=== PATIENT | male | born 1985 ===

== ENCOUNTER → 2020-03-24 | Outpatient (CLI) | payer OTHER ==
--- NOTE | 2020-03-24 11:30 | RAD ---
EXAMINATION: MRI RIGHT KNEE WITHOUT CONTRAST CLINICAL HISTORY: MEDIAL KNEE PAIN AFTER TWISTING 5 MONTHS AGO TECHNIQUE: Routine non-contrast MRI of the knee COMPARISON: None FINDINGS: MENISCI: Medial Meniscus: Intact. Lateral Meniscus: Intact. LIGAMENTS: ACL: Intact PCL: Intact MCL: Intact LCL Complex: Intact CARTILAGE: Medial Femoral Condyle: Small area(s) of low grade (less than 50% thickness) partial thickness cartilage loss and or fissuring Medial Tibial Plateau: Normal Lateral Femoral Condyle: Small area(s) of high grade (greater than 50% thickness) partial thickness cartilage loss and or fissuring Lateral Tibial Plateau: Normal Patella: Single full-thickness fissure with subchondral marrow reactive/cystic changes in the lateral facet Trochlea: Normal TENDONS: The distal quadriceps and patellar tendons are intact. The popliteus tendon is intact. BONES AND MARROW: No evidence of fracture or bone marrow replacing process. MUSCLES: Muscle bulk and signal intensity are normal. JOINT FLUID AND SYNOVIUM: No joint effusion. No synovitis. No Humphries's cyst. IMPRESSION: Mild chondral wear greatest in the patella. No discrete meniscal tear. Electronically signed by: Jam Roldan DO (03/24/2020 11:27 AM) [id number]
== END | disposition home or self-care (01) ==
LOC: MRI 08:45
PROVIDERS: ATTEND Preventive Medicine Occupational Medicine
DX: M25.561 Pain in right knee (principal); M24.10 Other articular cartilage disorders, unspecified site
CPT/HCPCS: 73721